=== PATIENT | female | born 1960 | race Caucasian/White ===

== ENCOUNTER 2017-08-12 13:08 | Emergency (ER) | payer OTHER, BC ==
[2017-08-12] MEDS: KETOROLAC 15 MG INJ IV (14:39)
[2017-08-12] MEDS: SOD CHLORIDE 0.9% 500 ML IV (14:39)
[2017-08-12 15:26] LABS: ADD MAN DIFF? NO
[2017-08-12 15:30] LABS: WHITE BLOOD COUNT 11.4 10^3/ul (4.8-10.8)
[2017-08-12 15:30] LABS: BASOPHIL # 0.1 10^3/ul (0.0-0.1); BASOPHILS % 0.8 % (0.0-2.0); EOSINOPHILS # 0.1 10^3/ul (0.0-0.5); EOSINOPHILS % 1.2 % (0.0-7.0); HEMOGLOBIN 15.1 g/dl (12.0-16.0); LYMPHOCYTES # 2.5 10^3/ul (0.8-2.9); LYMPHOCYTES % 21.6 % (15.0-51.0); MEAN CORPUSCULAR HEMOGLOBIN 25.6 pg (29.0-33.0); MEAN CORPUSCULAR HGB CONC 32.8 g/dl (32.0-37.0); MEAN CORPUSCULAR VOLUME 78.1 fl (82.0-101.0); MEAN PLATELET VOLUME 11.2 fl (7.4-10.4); MONOCYTE # 0.8 10^3/ul (0.3-0.9); MONOCYTES % 6.6 % (0.0-11.0); NEUTROPHIL # 7.9 10^3/ul (1.6-7.5); NEUTROPHILS % 69.4 % (39.0-77.0); PLATELET COUNT 320 10^3/UL (140-415); RED BLOOD COUNT 5.89 10^6/ul (4.20-5.40); RED CELL DISTRIBUTION WIDTH 14.2 % (11.5-14.5)
[2017-08-12 15:38] LABS: ADD UMIC YES; UR ASCORBIC ACID NEGATIVE (NEGATIVE); UR BACTERIA FEW /HPF (NONE SEEN); UR BILIRUBIN (Dip) NEGATIVE (NEGATIVE); UR BLOOD (Dip) 2+ mg/dL (NEGATIVE); UR CLARITY SLIGHTLY CLOUDY (CLEAR); UR COLOR YELLOW (YELLOW); UR GLUCOSE (Dip) NEGATIVE (NEGATIVE); UR KETONES (Dip) TRACE mg/dL (NEGATIVE); UR LEUKOCYTE ESTERASE (Dip) 2+ Leu/ul (NEGATIVE); UR NITRITE (Dip) NEGATIVE (NEGATIVE); UR RBC 6 /HPF (0-5); UR SQUAMOUS EPITHELIAL CELL FEW /HPF (FEW); UR TOTAL PROTEIN (Dip) NEGATIVE (NEGATIVE); UR UROBILINOGEN (Dip) NEGATIVE (NEGATIVE); UR WBC 11 /HPF (0-5)
[2017-08-12 15:49] LABS: ALANINE AMINOTRANSFERASE 28 IU/L (13-69); ALBUMIN 4.9 g/dl (3.3-4.9); ALBUMIN/GLOBULIN RATIO 1.11; ALKALINE PHOSPHATASE 87 IU/L (42-121); ANION GAP 19 (8-16); ASPARTATE AMINO TRANSFERASE 40 IU/L (15-46); BILIRUBIN,INDIRECT 0.6 mg/dl (0-1.1); BILIRUBIN,TOTAL 0.6 mg/dl (0.2-1.3); BLOOD UREA NITROGEN 11 mg/dl (7-20); CALCIUM 9.8 mg/dl (8.4-10.2); CARBON DIOXIDE 21 mmol/L (21-31); CHLORIDE 107 mmol/L (97-110); CREATININE 0.61 mg/dl (0.44-1.00); GLUCOSE 96 mg/dl (70-220); LIPASE 90 U/L (23-300); POTASSIUM 4.3 mmol/L (3.5-5.1); SODIUM 143 mmol/L (135-144); TOTAL PROTEIN 9.3 g/dl (6.1-8.1)
[2017-08-12 16:00] LABS: TROPONIN-I < 0.012 ng/ml (0.00-0.12)
[2017-08-12] MEDS: CEPHALEXIN 500 MG CAP PO (16:12)
== END 2017-08-12 16:27 | disposition home or self-care (01) ==
LOC: E/R 13:08
DX: I10 Essential (primary) hypertension (principal); N30.00 Acute cystitis without hematuria
CPT/HCPCS: 36415; 71045; 80053; 81001; 83690; 84484; 85025; 96374; 99285-25

== ENCOUNTER 2017-12-14 11:45 | Inpatient (IN) | payer OTHER ==
[2017-12-14] MEDS: FAMOTIDINE 20 MG TAB PO (11:30)
[2017-12-14] MEDS: DIPHENHYDRAMINE 50 MG CAP PO (11:30)
[2017-12-14] MEDS: DIAZEPAM 5 MG TAB PO (11:30)
[~2017-12-14 11:45] MED LIST: SOD CHLORIDE 0.45% 1,000 ML IV
[2017-12-14 12:43] LABS: ADD MAN DIFF? NO
[2017-12-14 12:46] LABS: WHITE BLOOD COUNT 9.3 10^3/ul (4.8-10.8)
[2017-12-14 12:46] LABS: BASOPHIL # 0.1 10^3/ul (0.0-0.1); EOSINOPHILS # 0.1 10^3/ul (0.0-0.5); EOSINOPHILS % 1.5 % (0.0-7.0); HEMATOCRIT 42.9 % (37.0-47.0); LYMPHOCYTES # 2.8 10^3/ul (0.8-2.9); LYMPHOCYTES % 30.4 % (15.0-51.0); MEAN CORPUSCULAR HEMOGLOBIN 25.5 pg (29.0-33.0); MEAN CORPUSCULAR HGB CONC 32.6 g/dl (32.0-37.0); MEAN PLATELET VOLUME 9.8 fl (7.4-10.4); MONOCYTE # 0.7 10^3/ul (0.3-0.9); MONOCYTES % 7.4 % (0.0-11.0); NEUTROPHIL # 5.5 10^3/ul (1.6-7.5); NEUTROPHILS % 59.5 % (39.0-77.0); PLATELET COUNT 355 10^3/UL (140-415); RED CELL DISTRIBUTION WIDTH 14.4 % (11.5-14.5)
[2017-12-14 13:06] LABS: ANION GAP 17 (8-16); CARBON DIOXIDE 28 mmol/L (21-31); CHLORIDE 103 mmol/L (97-110); CHOL/HDL RATIO 5.8 RATIO; CHOLESTEROL 232 mg/dl (100-200); GLUCOSE 101 mg/dl (70-220); HDL CHOLESTEROL 40 mg/dl (37-92); LDL CHOLESTEROL,CALCULATED 166 mg/dl; TRIGLYCERIDES 131 mg/dl (0-149)
[2017-12-14 13:07] LABS: BLOOD UREA NITROGEN 13 mg/dl (7-20); CALCIUM 9.9 mg/dl (8.4-10.2); CREATININE 0.62 mg/dl (0.44-1.00); POTASSIUM 4.2 mmol/L (3.5-5.1); SODIUM 144 mmol/L (135-144)
[2017-12-14 13:16] LABS: INR 0.91; PROTIME 12.3 Sec (11.9-14.9)
[2017-12-14 13:17] LABS: PARTIAL THROMBOPLASTIN TIME 30.4 Sec (25.0-35.0)
[2017-12-14] MEDS ORDERED: IOHEXOL 350MG/ML 50 ML BTL (13:30)
[2017-12-14] MEDS ORDERED: MIDAZOLAM 1 MG/ML 2 ML INJ (13:30)
[2017-12-14] MEDS ORDERED: IODIXANOL LOCM 100 ML BTL (13:30)
[2017-12-14] MEDS ORDERED: FENTAnyl 50 MCG/ML VIAL (13:30)
[2017-12-14] MEDS ORDERED: VERAPAMIL 5 MG INJ (13:30)
[2017-12-14] MEDS ORDERED: NITROGLYCERIN (IC) 100 MCG/ML INJ (13:30)
[2017-12-14] MEDS ORDERED: HEPARIN 1000 UNITS/ML 10 ML INJ (13:30)
[2017-12-14] MEDS ORDERED: ACETAMINOPHEN 325 MG TAB PO ×2 (15:00→18:00)
[2017-12-14] MEDS ORDERED: morphine 2 MG INJ IV (15:00)
[2017-12-14] MEDS ORDERED: AL HYDROX/MG HYDROX/SIMETH 30 ML CUP PO (15:00)
[2017-12-14] MEDS ORDERED: ONDANSETRON 4 MG INJ IV (15:00)
[2017-12-14] MEDS: SOD CHLORIDE 0.9% 1,000 ML IV (16:00)
[2017-12-14] MEDS ORDERED: NACL 0.9% 3 ML SYG IV (18:00)
[2017-12-14] MEDS: ATORVASTATIN 40 MG TAB PO (21:58)
[2017-12-15] MEDS: LEVOTHYROXINE 88 MCG TAB PO (06:31)
[2017-12-15] MEDS: VALSARTAN 160 MG TAB PO (08:22)
[2017-12-15] MEDS: HYDROCHLOROTHIAZIDE 25 MG TAB PO (08:22)
[2017-12-15] MEDS: ASPIRIN 81 MG TAB PO (08:22)
[2017-12-15] MEDS: ENOXAPARIN 40 MG/0.4 ML SYG SC (08:23)
[2017-12-15] MEDS: METOPROLOL 25 MG TAB PO (20:28)
[2017-12-15] MEDS: ATORVASTATIN 40 MG TAB PO (20:29)
[2017-12-15] MEDS ORDERED: morphine LIQ (10 MG/5 ML) CUP PO (21:30)
[2017-12-16] MEDS: LEVOTHYROXINE 88 MCG TAB PO (07:03)
[2017-12-16] MEDS: VALSARTAN 160 MG TAB PO (08:33)
[2017-12-16] MEDS: METOPROLOL 25 MG TAB PO (08:33)
[2017-12-16] MEDS: HYDROCHLOROTHIAZIDE 25 MG TAB PO (08:33)
[2017-12-16] MEDS: ASPIRIN 81 MG TAB PO (08:34)
[2017-12-16] MEDS: ENOXAPARIN 40 MG/0.4 ML SYG SC (08:35)
== END 2017-12-16 08:45 | disposition left against medical advice (07) | DRG 287 ==
LOC: CCL 11:45 → SDS 11:45 → MS4 12-15 14:46
PROC: 4A023N7 Measurement of Cardiac Sampling and Pressure, Left Heart, Percutaneous Approach (ICD-10-PCS; principal; 2017-12-14 13:20)
PROC: B211YZZ Fluoroscopy of Multiple Coronary Arteries using Other Contrast (ICD-10-PCS; 2017-12-14 13:20)
PROC: B215YZZ Fluoroscopy of Left Heart using Other Contrast (ICD-10-PCS; 2017-12-14 13:20)
DX: I25.10 Atherosclerotic heart disease of native coronary artery without angina pectoris (principal); I34.0 Nonrheumatic mitral (valve) insufficiency; I10 Essential (primary) hypertension; E78.5 Hyperlipidemia, unspecified; E11.9 Type 2 diabetes mellitus without complications; E03.9 Hypothyroidism, unspecified; F17.200 Nicotine dependence, unspecified, uncomplicated
CPT/HCPCS: 71045; 80048; 80061; 83036; 85025; 85610; 85730; 93005; 93458